=== PATIENT | female | born 1995 | race Two or more races ===

== ENCOUNTER 2019-04-18 21:24 | Emergency (ER) | payer OTHER ==
[~2019-04-18] VITALS: Ht 170.2 cm; Wt 68.5 kg
[2019-04-18 21:29] VITALS: Ht 170.2 cm; Wt 68.5 kg
[2019-04-18 23:06] VITALS: BP 106/74
== END 2019-04-18 23:06 | disposition home or self-care (01) ==
LOC: ED 21:24
DX: J03.90 Acute tonsillitis, unspecified (principal); H92.02 Otalgia, left ear

== ENCOUNTER 2019-12-27 21:43 | Emergency (ER) | payer OTHER ==
[~2019-12-27] VITALS: Ht 172.7 cm; Wt 74.8 kg
[2019-12-27 21:52] VITALS: Ht 172.7 cm; Wt 74.8 kg
[2019-12-28 01:34] VITALS: BP 117/49
== END 2019-12-28 01:34 | disposition home or self-care (01) ==
LOC: ED 21:43
DX: M54.5 Low back pain (principal)
CPT/HCPCS: J1885

== ENCOUNTER 2020-02-06 19:58 | Emergency (ER) | payer OTHER ==
[~2020-02-06] VITALS: Ht 172.7 cm; Wt 69.9 kg
[2020-02-06 20:04] VITALS: Ht 172.7 cm; Wt 69.9 kg
[2020-02-06 21:02] LABS: BASOPHIL % 0.9 % (0-2); PLATELET COUNT 296 x10^3mcL (130-400); RED CELL DISTRIBUTION WIDTH 12.5 % (11.5-14.5)
[2020-02-06 21:17] LABS: CALCIUM 9.5 mg/dL (8.5-10.1); CARBON DIOXIDE 25.8 mmol/L (21-32); CHLORIDE SERUM 104 mmol/L (98-107); CREATININE SERUM 0.8 mg/dL (0.6-1.0); GFR1 > 60 mL/min; GLUCOSE SERUM 85 mg/dL (74-106); POTASSIUM SERUM 3.7 mmol/L (3.5-5.1); SODIUM SERUM 140 mmol/L (136-145)
[2020-02-06 21:19] LABS: ALBUMIN 4.4 g/dL (3.4-5.0); ALKALINE PHOSPHATASE 42 U/L (46-116); ALT/SGPT 27 U/L (14-59); AST/SGOT 23 U/L (15-37); BILIRUBIN TOTAL 0.7 mg/dL (0.20-1.00); LIPASE 123 IU/L (73-393); TOTAL PROTEIN, SERUM 7.8 g/dL (6.4-8.2)
[2020-02-07 00:27] VITALS: BP 108/72
== END 2020-02-07 00:28 | disposition home or self-care (01) ==
LOC: ED 19:58
DX: R10.13 Epigastric pain (principal); R11.2 Nausea with vomiting, unspecified; F41.0 Panic disorder [episodic paroxysmal anxiety]
CPT/HCPCS: Q0092